=== PATIENT | female | born 1990 | race Caucasian/White ===

== ENCOUNTER 2017-05-01 06:29 | Inpatient (IN) ==
[2017-05-01] MEDS ORDERED: ONDANSETRON 4 MG/2 ML VIAL IV PRN (07:45)
[2017-05-01] MEDS ORDERED: MEPERIDINE 50 MG/1 ML VIAL IV PRN (07:45)
[2017-05-01] MEDS ORDERED: BUTORPHANOL 2 MG/ML VIAL IV PRN (07:45)
[2017-05-01] MEDS ORDERED: OXYTOCIN/LR 20 UNIT/1,000 ML BAG IV SCH (08:00)
[2017-05-01 08:32] LABS: Basophils % 0.2 % (0.0-0.8); Eosinophils # 0.1 10*3/uL (0.0-0.87); Eosinophils % 0.6 % (0.00-10.9); Hematocrit 31.9 VOL% (35.7-47.0); Hemoglobin 10.1 GM/DL (12.0-16.0); Immature Granulocytes % 2.1 %; Immature Granulocytes Absolute 0.24 #; Lymphocytes # 2.1 10*3/uL (1.4-4.0); Lymphocytes % 18.1 % (21.3-54.2); Mean Corpuscular HGB Conc 31.7 GM/DL (32-36); Mean Corpuscular Hemoglobin 27 PG (27-34); Mean Corpuscular Volume 83.7 FL (87-102); Monocytes # 0.7 10*3/uL (0.11-0.8); Monocytes % 6.1 % (1.7-12.7); Neutrophils # 8.4 10*3/uL (1.4-7.4); Neutrophils % 72.9 % (38.7-73.9); Platelet Count 261 T/CUMM (130-400); Red Blood Count 3.81 MC/CUMM (3.8-5.5); Red Cell Distribution Width 15.6 % (9.3-17.3); White Blood Count 11.6 T/CUMM (4-12)
[2017-05-01 09:04] LABS: Alanine Aminotransferase 11 U/L (13-56); Albumin 2.7 G/DL (3.4-5.0); Alkaline Phosphatase 154 U/L (45-117); Aspartate Amino Transferase 13 U/L (0-37); Bilirubin,Total < 0.39 MG/DL (0.2-1.0); Calcium 9.2 MG/DL (8.5-10.1); Total Protein 6.8 G/DL (6.4-8.3)
[2017-05-01 09:05] LABS: Blood Urea Nitrogen 8 MG/DL (7-18); Glucose 71 MG/DL (74-106); Osmolality,Calculated 268.8 MOS/KG (273-304); Potassium 4.1 MMOL/L (3.5-5.1); Sodium 137 MMOL/L (136-145); Uric Acid 4.1 MG/DL (2.6-6.0)
[2017-05-01] MEDS: LACTATED RINGERS 1,000 ML IV SCH ×3 (09:12→12:48)
[2017-05-01] MEDS ORDERED: AMPICILLIN INJ 2,000 MG in SODIUM CHLORIDE 0.9% 100 ML IV ONE (09:21)
--- NOTE | 2017-05-01 10:10 | OB/GYN History & Physical ---
History of Present Illness Chief complaint: In for elective induction of labor due to term . History of present illness: Ms. Alonzo is a 27 year old female who is a 3 para 2 living 2. Her HARIKA is 05/07/2015. For an estimated gestational age of 39 with an 1 day. The patient presents for elective induction of labor due to term . The risk and benefits of been thoroughly discussed with this patient and significant other, plan of care has been discussed with Dr. Garza and all parties are in agreement with plan. The patient received her care through the [facility] and she received routine care, her course was uneventful. She has had 2 previous vaginal deliveries and the largest weighing 8 pounds and 9 ounces, she reported no complications with either . labs: The patient is O+, she is GBS positive, RPR is nonreactive, hepatitis B negative, HIV negative, review of systems is negative. Home Medications Medication Instructions Recorded Confirmed Type Ferrous Sulfate Tab [Feosol 325 mg PO BID #30 tablet 11/13/15 05/01/17 Rx Original Tab] Multivitamin () [ 1 tablet PO DAILY 01/15/17 05/01/17 History Vitamin] Allergies Allergy/AdvReac Type Severity Reaction Status Date / Time No Known Allergies Allergy Verified 05/01/17 07:44 12 point system: reviewed and no additional remarkable complaints except as stated Medical,Surgical,& Family Hx - Medical History Medical History: noncontributory Reproductive: No history of: Ectopic , Complication - Surgical History Surgical History: noncontributory - Family History Family History: Reports;: Family Cancer (BREAST MOTHER), Family Diabetes ( MATERNAL GRANDMOTHER), Family Heart Disease (MATERNAL GRANDMOTHER) - Social History Smoking Status: Current every day smoker Have you smoked in the last 12 months: Yes Marital Status: Lives With:: Spouse Functional capacity: independent ambulation 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 General appearance: no acute distress - Antepartum / Post Antepartum Exam Cervix - Dilatation: 4 cm Effacement: 80% Station: -2 Rupture: Intact Presentation: Vertex Heart Rate: 140s Breast: bilateral: normal Abdomen obstetrics: Present: bowel sounds normal Vagina: Present: normal moisture Uterus exam: Present: enlarged Anus/Rectum: Present: normal perianal skin - Respiratory Respiratory exam: Present: clear to auscultation bilaterally - Cardiovascular Cardiovascular exam: Present: regular rate and rhythm - GI/Abdominal GI/Abdominal exam: Present: normal bowel sounds - Extremities Exam Extremities exam: Present: normal inspection - Neurological Exam Neurological exam: Present: alert, oriented X3 - Psychiatric Psychiatric exam: Present: normal affect, normal mood - Skin Skin exam: Present: normal color, warm Assessment and Plan (1) Term Status: Acute Assessment and plan: Admit IV fluids IV Pitocin per protocol Artificial rupture membranes when appropriate Internal monitors if indicated Epidural anesthesia if desired Anticipate Current Visit: Yes Results - Labs CBC & BMP: 05/01/17 08:10 05/01/17 08:10
[2017-05-01] MEDS ORDERED: CITRIC ACID/SODIUM CITRATE 30 ML UDCUP PO ONE (10:15)
[2017-05-01] MEDS ORDERED: FAMOTIDINE 20 MG/2 ML VIAL IV ONE (10:15)
[2017-05-01] MEDS ORDERED: ePHEDrine 50 MG/ML AMP IV PRN (10:20)
[2017-05-01] MEDS ORDERED: hydrOXYzine HCL 25 MG/1 ML VIAL IM PRN (10:20)
[2017-05-01] MEDS ORDERED: PROMETHAZINE 25 MG/1 ML VIAL IM ONE (10:20)
[2017-05-01] MEDS ORDERED: fentaNYL 2 MCG/ROPIV 0.2% EPID 150 ML EPIDURAL SCH (10:20)
[2017-05-01] MEDS ORDERED: diphenhydrAMINE 50 MG/1 ML VIAL IV PRN ×2 (10:20)
[2017-05-01] MEDS ORDERED: ONDANSETRON 4 MG/2 ML VIAL IV ONE (10:20)
[2017-05-01] MEDS ORDERED: fentaNYL 2 MCG/ROPIV 0.2% EPID 150 ML EPIDURAL ONE (10:27)
[2017-05-01] MEDS ORDERED: ePHEDrine 50 MG/ML AMP ONE (10:27)
[2017-05-01 12:31] LABS: Apearance,Urine CLEAR (Clear); Bilirubin,Urine Negative (Negative); Blood, Urine Negative (Negative); Glucose,Urine (UA) Negative (Negative); Ketones,Urine 5 mg/dL (Negative); Mucus,Urine Occasional /LPF (Occasional); Nitrite,Urine Negative (Negative); Protein,Urine Negative; RBC,Urine <1 /HPF (0-4); Squamous Epithelial Cell,Urine Occasional /HPF (0-10); Urine Color Yellow (Yellow); Urine Specific Gravity 1.012 (1.001-1.035); Urine Urobilinogen < 2.0 EU/DL (0.2-1.0); WBC,Urine 1 /HPF (0-6)
[2017-05-01] MEDS: AMPICILLIN INJ 1,000 MG in SODIUM CHLORIDE 0.9% 100 ML IV SCH ×2 (12:42→16:00)
[2017-05-01] MEDS ORDERED: MEASLES/MUMPS/RUBELLA VACCINE 0.5 ML VIAL SUBCUT ONE (17:24)
[2017-05-01] MEDS ORDERED: HYDROCORTISONE 2.5% RECTAL CREAM 30 GM TUBE TOP PRN (17:24)
[2017-05-01] MEDS ORDERED: WITCH HAZEL PADS 100/JAR TOP PRN (17:24)
[2017-05-01] MEDS ORDERED: OXYTOCIN/LR 20 UNIT/1,000 ML BAG IV ONE (17:24)
[2017-05-01] MEDS ORDERED: RHO(D) IMMUNE GLOBULIN 300 MCG SYRINGE IM ONE (17:24)
[2017-05-01] MEDS ORDERED: LANOLIN 50% CREAM 0.3 OZ TUBE TOP PRN (17:24)
[2017-05-01] MEDS ORDERED: BENZOCAINE 20%/MENTHOL 0.5% SPRAY 56 GM CAN TOP PRN (17:24)
[2017-05-01] MEDS ORDERED: DIPH/TET/ACEL PERT BOOSTER VACCINE 0.5 ML VIAL IM ONE (17:24)
[2017-05-01] MEDS ORDERED: ACETAMINOPHEN 325 MG TABLET PO PRN (17:24)
[2017-05-01] MEDS ORDERED: BISACODYL 10 MG SUPP RECTAL PRN (17:24)
[2017-05-01] MEDS ORDERED: oxyCODONE/ACETAMINOPHEN 5-325 MG TABLET PO PRN (17:24)
--- NOTE | 2017-05-01 17:24 | Event Note ---
HPI: Ms. Alonzo presented to the labor department for elective induction of labor due to term . After thoroughly discussing the risk and benefits with the patient she was admitted for induction of labor. Stage I: The patient was admitted she received IV fluids and IV Pitocin per protocol. Artificial rupture membranes was performed with clear fluid noted. The patient progressed in labor with a CAT 1 tracing. She received an epidural for pain control. She had an uneventful course of labor. Stage II: The patient was checked and was found to be completely dilated. She was instructed to push and she pushed for approximately 15 minutes after which time the infant's head was delivered. A nuchal cord 1 was noted and reduced. The mouth and nose suctioned on the perineum. The remainder the was delivered at 1711 a viable female was noted. The infant was placed on the mom's abdomen for skin to skin bonding. Apgars were 8 at 1 minute and 9 at 5 minutes. weight was 9 pounds and 5 ounces. A cord pH was obtained and sent to the lab. Stage III: A spontaneous delivery of a Hdez placenta with a three-vessel cord noted. The placenta was further examined appeared to be grossly intact. The vagina cervix inspected with no tears or lacerations noted. Estimated blood loss is approximate 125 cc. At the time of dictation mother and baby are both in stable condition.
[2017-05-01] MEDS ORDERED: ACETAMINOPHEN/CODEINE 300-30 MG TABLET PO PRN (17:26)
[2017-05-01] MEDS: IBUPROFEN 800 MG TABLET PO PRN (20:00)
[2017-05-01] MEDS: oxyCODONE/ACETAMINOPHEN 5-325 MG TABLET PO PRN (23:01)
[2017-05-01] MEDS: DOCUSATE SODIUM 100 MG CAPSULE PO SCH (23:02)
[2017-05-02 06:27] LABS: Basophils % 0.1 % (0.0-0.8); Eosinophils # 0.1 10*3/uL (0.0-0.87); Eosinophils % 0.3 % (0.00-10.9); Hematocrit 28.8 VOL% (35.7-47.0); Hemoglobin 9.3 GM/DL (12.0-16.0); Immature Granulocytes % 1.3 %; Immature Granulocytes Absolute 0.19 #; Lymphocytes # 2.9 10*3/uL (1.4-4.0); Lymphocytes % 19.5 % (21.3-54.2); Mean Corpuscular HGB Conc 32.3 GM/DL (32-36); Mean Corpuscular Hemoglobin 27 PG (27-34); Mean Corpuscular Volume 83.5 FL (87-102); Mean Platelet Volume 11.7 FL (9.6-12.0); Monocytes # 0.9 10*3/uL (0.11-0.8); Monocytes % 6.2 % (1.7-12.7); Neutrophils # 10.7 10*3/uL (1.4-7.4); Neutrophils % 72.6 % (38.7-73.9); Platelet Count 235 T/CUMM (130-400); Red Blood Count 3.45 MC/CUMM (3.8-5.5); Red Cell Distribution Width 15.5 % (9.3-17.3); White Blood Count 14.7 T/CUMM (4-12)
[2017-05-02] MEDS: oxyCODONE/ACETAMINOPHEN 5-325 MG TABLET PO PRN (07:11)
[2017-05-02] MEDS: IBUPROFEN 800 MG TABLET PO PRN ×2 (07:11→21:03)
[2017-05-02] MEDS: DOCUSATE SODIUM 100 MG CAPSULE PO SCH ×2 (08:33→21:02)
--- NOTE | 2017-05-02 08:59 | OB/GYN Progress Note ---
Assessment and Plan (1) Term Status: Acute Assessment and plan: Admit IV fluids IV Pitocin per protocol Artificial rupture membranes when appropriate Internal monitors if indicated Epidural anesthesia if desired Anticipate Current Visit: Yes (2) Vaginal delivery Status: Acute Assessment and plan: Initiate routine orders. 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 Bonding well with . 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 Vitals: Vital Signs Temp Pulse Resp BP Pulse Ox 05/02/17 07:27 97 F L 76 20 111/73 98 05/02/17 04:00 97.1 F L 62 18 82/50 96 05/02/17 02:00 18 05/02/17 00:00 97.5 F L 73 18 92/50 95 05/01/17 21:10 99.0 F 86 18 114/67 95 05/01/17 20:40 98.4 F 91 H 18 119/59 96 05/01/17 19:31 97.8 F 110 H 18 118/61 05/01/17 16:00 97.5 F L 102 H 19 117/60 05/01/17 14:52 97.1 F L 05/01/17 13:28 97.5 F L 05/01/17 11:33 97.3 F L 79 20 115/65 General appearance: no acute distress - Antepartum / Post Post Exam Breast: bilateral: normal Abdomen obstetrics: Present: bowel sounds normal Vagina: Present: normal moisture, discharge (Light lochia rubra) Uterus exam: Present: enlarged (Fundus firm and midline) - Respiratory Respiratory exam: Present: clear to auscultation bilaterally - Cardiovascular Cardiovascular exam: Present: regular rate and rhythm - GI/Abdominal GI/Abdominal exam: Present: normal bowel sounds, soft - Extremities Exam Extremities exam: Present: normal inspection - Neurological Exam Neurological exam: Present: alert, oriented X3 - Psychiatric Psychiatric exam: Present: normal affect, normal mood - Skin Skin exam: Present: normal color, warm Results - Labs CBC & BMP: 05/02/17 05:38 05/01/17 08:10
[2017-05-02] MEDS: FERROUS SULFATE 325 MG TABLET PO SCH ×2 (09:30→21:02)
--- NOTE | 2017-05-02 09:36 | Anesthesia Post-Op ---
Anesthesia Post OP - Post Ansesthetic Evaluation Patient seen in post op: Yes Resp: within normal limits CV: within normal limits Mental: within normal limits Temp: within normal limits [id number]: within normal limits Nausea and Vomiting: within normal limits Pain: within normal limits
[2017-05-03 07:56] VITALS: BP 85/50
[2017-05-03] MEDS: FERROUS SULFATE 325 MG TABLET PO SCH (08:53)
[2017-05-03] MEDS: DOCUSATE SODIUM 100 MG CAPSULE PO SCH (08:53)
[2017-05-03] MEDS: IBUPROFEN 800 MG TABLET PO PRN (08:55)
--- NOTE | 2017-05-03 09:33 | Discharge Summary ---
Hospital Course - Hospital Course Hospital Course: Ms. Alonzo presented to the labor department for elective induction of labor due to term . The patient subsequently delivered a viable with no complications. She is followed a routine course and she has done well. She is bonding well with her . Her bleeding is minimal with no odor. Her perineum is intact with no edema. Her vital signs and lab values are stable. She is voiding without difficulty. She denies any significant pain or discomfort. She will be discharged home prescriptions for pain and a follow-up appointment in our office. Diagnosis - Discharge Diagnosis (1) Term Status: Acute (2) Vaginal delivery Status: Acute Specialty Discharge - Follow Up or Referrals Follow up with: Pebbles Garza MD [Physician] - (6 WEEKS ) Discharge Plan - Discharge Data Disposition: Disch To Home/Self Care Condition at Discharge: Stable Discharge Diet: advance to your usual diet, regular diet Activity: resume usual activities as tolerated Hygiene: may shower Weight Bearing at Discharge: weight bear as tolerated Driving: no restrictions Contact your physician if you experience:: fever over 101, pain uncontrolled by pain medications - Discharge Medications New Ferrous Sulfate Tab [Feosol Original Tab] 325 mg PO BID #60 tablet Ibuprofen Tab [Motrin Tab] 800 mg PO Q8H PRN #30 tablet PRN Reason: Pain Moderate (4-7) Acetamin/Codeine 300-30 Tab [Tylenol/Codeine #3] 2 tablet PO Q4H PRN #30 tablet PRN Reason: Pain Mild (1-3) Continue Ferrous Sulfate Tab [Feosol Original Tab] 325 mg PO BID #30 tablet No Action Multivitamin () [ Vitamin] 1 tablet PO DAILY - Follow Up or Referral Follow Up: Pebbles Garza MD [Physician] - (6 WEEKS ) - Forms/Instructions Instructions: Depression (GEN), Perineal Care (DC), Vaginal Delivery (DC), Bleeding (DC) Exam - Constitutional Vitals: Period Temp Pulse Resp BP Sys/Pierre Pulse Ox Last 24 Hr 97.1 F-98.2 F 65-83 18-83 85-111/50-70 97-99 General appearance: normal weight, no acute distress - Respiratory Respiratory exam: Present: clear to auscultation bilaterally - Cardiovascular Cardiovascular exam: Present: regular rate and rhythm - GI/Abdominal GI/Abdominal exam: Present: normal bowel sounds, soft - Extremities Exam Extremities exam: Present: normal inspection - Back Exam Back exam: Present: normal inspection - Neurological Exam Neurological exam: Present: alert, oriented X3 - Psychiatric Psychiatric exam: Present: normal affect, normal mood - Skin Skin exam: Present: normal color, warm DS: Provider Date of admission: 05/01/17 07:46 Primary care physician: . No PCP Attending physician on admission: Pebbles Garza MD Consults: 05/01/17 07:46 Consult to Anesthesiology [CONS] Routine Consulting Provider: Reason for Anesthesiology: Epidural Consult Comment: Epidural for pain managment 05/01/17 17:25 Consult to Custom Marine Canvas Fabricator [CONS] Routine Consult Custom Marine Canvas Fabricator: Breast Feeding Discharging clinician: Chanel Martinez CNM Expected date of discharge: 05/03/17
== END 2017-05-03 13:20 | disposition home or self-care (01) | DRG 560 ==
LOC: N.LDOUT 06:29 → N.LD 06:31 → N.OB 19:41
PROVIDERS: ADMIT Obstetrics & Gynecology; ATTEND Obstetrics & Gynecology

== ENCOUNTER 2021-07-28 04:22 | Inpatient (IN) ==
[2021-07-28] MEDS ORDERED: ONDANSETRON 4 MG/2 ML VIAL IV PRN ×2 (04:55→15:24)
[2021-07-28] MEDS ORDERED: hydrOXYzine HCL 25 MG/1 ML VIAL IM PRN (04:59)
[2021-07-28] MEDS ORDERED: diphenhydrAMINE 50 MG/1 ML VIAL IV PRN ×2 (04:59)
[2021-07-28] MEDS ORDERED: NALOXONE 0.4 MG/ML VIAL IV PRN (04:59)
[2021-07-28] MEDS ORDERED: ePHEDrine 50 MG/ML VIAL IV PRN (04:59)
[2021-07-28] MEDS ORDERED: PROMETHAZINE 25 MG/1 ML VIAL IM PRN (04:59)
[2021-07-28] MEDS ORDERED: CITRIC ACID/SODIUM CITRATE 30 ML UDCUP PO PRN (05:00)
[2021-07-28] MEDS ORDERED: FAMOTIDINE 20 MG/2 ML VIAL IV PRN (05:00)
[2021-07-28] MEDS ORDERED: OXYTOCIN/LR 30 UNIT/1,000 ML BAG IV PRN (05:03)
[2021-07-28] MEDS: LACTATED RINGERS 1,000 ML IV SCH ×2 (05:06→06:14)
[2021-07-28 05:43] LABS: Basophils # 0.1 10*3/uL (0.0-0.2); Basophils % 0.4 % (0.0-0.8); Eosinophils # 0.1 10*3/uL (0.0-0.87); Eosinophils % 0.9 % (0.00-10.9); Hematocrit 33.2 VOL% (35.7-47.0); Hemoglobin 10.7 GM/DL (12.0-16.0); Immature Granulocytes % 2.5 %; Immature Granulocytes Absolute 0.28 #; Lymphocytes # 2.3 10*3/uL (1.4-4.0); Lymphocytes % 20.4 % (21.3-54.2); Mean Corpuscular HGB Conc 32.2 GM/DL (32-36); Mean Platelet Volume 10.9 FL (9.6-12.0); Monocytes % 5.9 % (1.7-12.7); Neutrophils % 69.9 % (38.7-73.9); Platelet Count 254 T/CUMM (130-400); Red Blood Count 3.69 MC/CUMM (3.8-5.5); Red Cell Distribution Width 14.9 % (9.3-17.3); White Blood Count 11.1 T/CUMM (4-12)
[2021-07-28 06:06] LABS: Albumin 2.7 G/DL (3.4-5.0); Bilirubin,Total 0.7 MG/DL (0.20-1.00); Calcium 9.3 MG/DL (8.5-10.1); Osmolality,Calculated 274.7 MOS/KG (273-304); Potassium 3.7 MMOL/L (3.5-5.1); Total Protein 7.2 G/DL (6.4-8.2)
[2021-07-28] MEDS: fentaNYL 2 MCG/ROPIV 0.2% EPID 100 ML EPIDURAL SCH ×2 (06:41→13:41)
[2021-07-28] MEDS ORDERED: OXYTOCIN/LR 20 UNIT/1,000 ML BAG IV SCH (07:30)
[2021-07-28 08:58] LABS: Bilirubin,Urine Negative (Negative); Blood, Urine Negative (Negative); Glucose,Urine (UA) Negative (Negative); Ketones,Urine Negative (Negative); Mucus,Urine Occasional /LPF (Occasional); Nitrite,Urine Negative (Negative); Protein,Urine Negative; RBC,Urine <1 /HPF (0-4); Squamous Epithelial Cell,Urine Occasional /HPF (0-10); Urine Appearance CLEAR (Clear); Urine Color Yellow (Yellow); Urine Specific Gravity 1.011 (1.001-1.035); Urine Urobilinogen < 2.0 EU/DL (0.2-1.0)
[2021-07-28] MEDS ORDERED: miSOPROStoL 200 MCG TABLET ONE ×2 (10:29→14:52)
[2021-07-28] MEDS ORDERED: TRANEXAMIC ACID 1,000 MG/10 ML VIAL ONE ×2 (10:29→14:52)
[2021-07-28] MEDS ORDERED: CARBOPROST TROMETHAMINE 250 MCG/ML AMP IM ONE ×2 (10:29→14:52)
[2021-07-28] MEDS ORDERED: METHYLERGONOVINE 0.2 MG/1 ML AMP ONE ×2 (10:29→14:52)
[2021-07-28] MEDS ORDERED: OXYTOCIN/LR 30 UNIT/1,000 ML BAG IV ONE (10:30)
[2021-07-28] MEDS ORDERED: TERBUTALINE 1 MG/1 ML VIAL SUBCUT ONE (14:47)
[2021-07-28] MEDS ORDERED: TERBUTALINE 1 MG/1 ML VIAL ONE (14:47)
[2021-07-28] MEDS ORDERED: OXYTOCIN 10 UNIT/ML VIAL ONE (14:53)
[2021-07-28] MEDS ORDERED: LIDOCAINE MPF 2% /EPI 20 ML VIAL ONE (15:00)
[2021-07-28] MEDS ORDERED: PHENYLEPHRINE 1 MG/10 ML SYRINGE IV ONE ×2 (15:00→15:15)
[2021-07-28] MEDS ORDERED: ONDANSETRON 4 MG/2 ML VIAL ONE ×3 (15:00→15:18)
[2021-07-28] MEDS ORDERED: ceFAZolin 2,000 MG/50 ML DUPLEX IV ONE ×2 (15:07→15:15)
[2021-07-28] MEDS ORDERED: ACETAMINOPHEN INJ 1,000 MG/100 ML VIAL IV ONE (15:10)
[2021-07-28] MEDS ORDERED: KETOROLAC 30 MG/1 ML VIAL ONE (15:10)
[2021-07-28 15:11] LABS: Cord Arterial Blood HCO3 20.7 MMOL/L
[2021-07-28 15:12] LABS: Cord Venous Blood HCO3 21.6 MMOL/L; Cord Venous Blood PCO2 42.8 MMHG; Cord Venous Blood PO2 32.7 MMHG
[2021-07-28] MEDS ORDERED: OXYTOCIN 10 UNIT/ML VIAL IM ONE (15:14)
[2021-07-28] MEDS ORDERED: DEXAMETHASONE 4 MG/1 ML VIAL ONE (15:18)
[2021-07-28] MEDS ORDERED: MAGNESIUM HYDROXIDE SUSP 30 ML UDCUP PO PRN (15:24)
[2021-07-28] MEDS ORDERED: RHO(D) IMMUNE GLOBULIN 300 MCG SYRINGE IM ONE (15:24)
[2021-07-28] MEDS ORDERED: SIMETHICONE CHEW 80 MG TABLET PO PRN (15:24)
[2021-07-28] MEDS ORDERED: ACETAMINOPHEN 325 MG TABLET PO PRN (15:24)
[2021-07-28] MEDS ORDERED: OXYTOCIN/LR 20 UNIT/1,000 ML BAG IV ONE (15:24)
[2021-07-28] MEDS ORDERED: LACTATED RINGERS 1,000 ML IV SCH (15:30)
[2021-07-28] MEDS ORDERED: SODIUM BICARBONATE 10 MEQ/10 ML SYRINGE IV ONE (16:07)
[2021-07-28] MEDS ORDERED: KETOROLAC 30 MG/1 ML VIAL IV SCH (21:00)
[2021-07-28] MEDS ORDERED: ACETAMINOPHEN 500 MG TABLET PO SCH (21:00)
[2021-07-28] MEDS: DOCUSATE SODIUM 100 MG CAPSULE PO SCH (22:06)
[2021-07-28] MEDS: KETOROLAC 30 MG/1 ML VIAL IV SCH (23:36)
[2021-07-28] MEDS: ACETAMINOPHEN 500 MG TABLET PO SCH (23:53)
[2021-07-29 04:40] LABS: Basophils % 0.1 % (0.0-0.8); Hematocrit 26.5 VOL% (35.7-47.0); Immature Granulocytes % 0.7 %; Immature Granulocytes Absolute 0.11 #; Lymphocytes # 1.8 10*3/uL (1.4-4.0); Lymphocytes % 11.4 % (21.3-54.2); Mean Corpuscular HGB Conc 32.5 GM/DL (32-36); Mean Corpuscular Volume 89.5 FL (87-102); Mean Platelet Volume 10.6 FL (9.6-12.0); Monocytes % 5.9 % (1.7-12.7); Neutrophils % 81.9 % (38.7-73.9); Platelet Count 210 T/CUMM (130-400); Red Blood Count 2.96 MC/CUMM (3.8-5.5); Red Cell Distribution Width 15.1 % (9.3-17.3)
[2021-07-29 04:49] LABS: Hemoglobin 8.6 GM/DL (12.0-16.0); White Blood Count 15.5 T/CUMM (4-12)
[2021-07-29] MEDS: KETOROLAC 30 MG/1 ML VIAL IV SCH (06:05)
[2021-07-29] MEDS: ACETAMINOPHEN 500 MG TABLET PO SCH (06:06)
[2021-07-29] MEDS ORDERED: SIMETHICONE CHEW 125 MG TABLET PO PRN (08:16)
[2021-07-29] MEDS: METOCLOPRAMIDE 10 MG/2 ML VIAL IV SCH ×2 (08:28→15:57)
[2021-07-29] MEDS: MULTIVITAMIN (PRENATAL) TABLET PO SCH (08:29)
[2021-07-29] MEDS: DOCUSATE SODIUM 100 MG CAPSULE PO SCH ×2 (08:29→20:33)
[2021-07-29] MEDS: FERROUS SULFATE 325 MG TABLET PO SCH ×2 (08:29→20:33)
[2021-07-29] MEDS: IBUPROFEN 800 MG TABLET PO PRN ×2 (08:37→15:47)
[2021-07-30] MEDS: METOCLOPRAMIDE 10 MG TABLET PO SCH ×2 (00:40→06:41)
[2021-07-30] MEDS: IBUPROFEN 800 MG TABLET PO PRN (05:13)
[2021-07-30] MEDS: DOCUSATE SODIUM 100 MG CAPSULE PO SCH ×2 (07:39→09:26)
[2021-07-30] MEDS: FERROUS SULFATE 325 MG TABLET PO SCH ×2 (07:39→09:26)
[2021-07-30] MEDS: MULTIVITAMIN (PRENATAL) TABLET PO SCH ×2 (07:39→09:26)
[2021-07-30 09:09] VITALS: BP 113/72
== END 2021-07-30 12:27 | disposition home or self-care (01) | DRG 540 ==
LOC: N.LD 04:22 → N.OB 21:05
PROVIDERS: ADMIT Obstetrics & Gynecology; ATTEND Obstetrics & Gynecology
PROC: LDCSECT (ICD-10-PCS; 2021-07-28 14:40)